=== PATIENT | male | born 1985 | race Caucasian/White ===

== ENCOUNTER 2017-04-08 17:07 | Emergency (ER) | payer OTHER ==
[2017-04-08 22:21] LABS: FT4 (FREE T4) 1.42 ng/dL (0.93-1.70); TSH (THYROID STIM HORMONE) 1.47 uIU/mL (0.270-4.200)
== END 2017-04-08 23:40 | disposition home or self-care (01) ==
LOC: FER 17:07
PROVIDERS: Nurse Practitioner
DX: K21.9 Gastro-esophageal reflux disease without esophagitis (principal); E04.1 Nontoxic single thyroid nodule
CPT/HCPCS: 36415; 84439; 84443; 87450; 93005; 94664

== ENCOUNTER 2017-04-17 05:38 | Emergency (ER) | payer OTHER | END 2017-04-17 07:27 | disposition home or self-care (01) | LOC: FER 05:38 | DX: T78.3XXA Angioneurotic edema, initial encounter (principal) | CPT/HCPCS: J2930 ==

== ENCOUNTER 2017-04-18 14:22 | Emergency (ER) | payer OTHER | END 2017-04-18 16:19 | disposition home or self-care (01) | LOC: FER 14:22 | DX: J02.9 Acute pharyngitis, unspecified (principal) | CPT/HCPCS: 86308; 87450; J0561 ==